=== PATIENT | male | born 1990 | race Hispanic/Latino ===

== ENCOUNTER 2018-02-10 01:58 | Emergency (ER) | payer SELFPAY | END 2018-02-10 02:15 | LOC: NAV ERS 01:58 | DX: S01.511A Laceration without foreign body of lip, initial encounter (principal); F10.129 Alcohol abuse with intoxication, unspecified; F17.210 Nicotine dependence, cigarettes, uncomplicated; Z71.6 Tobacco abuse counseling; V69.40XA Driver of heavy transport vehicle injured in collision with unspecified motor vehicles in traffic accident, initial encounter | CPT/HCPCS: 99406 ==